=== PATIENT | male | born 1960 | race African-American/Black ===

== ENCOUNTER 2022-04-04 11:58 | Outpatient (CLI) | payer OTHER | END 2022-04-04 11:59 | disposition home or self-care (01) | LOC: SCSMRI 11:58 | PROVIDERS: ATTEND Orthopaedic Surgery | DX: M54.50 Low back pain, unspecified (principal); M48.061 Spinal stenosis, lumbar region without neurogenic claudication; M51.37 Other intervertebral disc degeneration, lumbosacral region | CPT/HCPCS: 72148 ==